=== PATIENT | female | born 1940 | race Caucasian/White ===

== ENCOUNTER 2018-12-08 12:54 | Inpatient (IN) | payer MEDICARE, BC ==
[2018-12-08] MEDS ORDERED: NS 0.9% 1000 ML** 1,000 ML IV ONE (13:51)
[2018-12-08] MEDS ORDERED: Albuterol 2.5 MG/3 ML NEB.SOL* (0.083%) INH ONE (13:53)
--- NOTE | 2018-12-08 14:04 | ED ---
Complex/Multi-Sys Presentation - HPI Summary HPI Summary: Patient is a 78 yr old female who presents emergency department for evaluation after fall that occurred earlier this morning. [facility]. Patient was reportedly found on the ground this morning with bruising to the right side of her face. History is obtained from patient's daughters who are present. Daughters note that patient has chronic dementia but seems a bit more confused than her baseline. Patient also has associated symptoms of a cough. Patient is not anticoagulated. Past hx of HTN. Symptoms are moderate in severity. No current modifying factors. 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 - Allergies/Home Medications Allergies/Adverse Reactions: Allergies Allergy/AdvReac Type Severity Reaction Status Date / Time Sulfa (Sulfonamide Allergy Unknown Verified 12/08/18 14:48 Antibiotics) Reaction Details Home Medications: Home Medications Acetaminophen [Acetaminophen Extra Strength] 1,000 mg PO Q8HR PRN 12/08/18 [ History Confirmed 12/08/18] Hydrochlorothiazide TAB* [Hydrodiuril TAB*] 12.5 mg PO QAM 12/08/18 [History Confirmed 12/08/18] Polyethylene Glycol 3350* [Miralax*] 17 gm PO QAM 12/08/18 [History Confirmed ] clonazePAM TAB(*) [KlonoPIN TAB(*)] 1 mg PO 0830,1300,1700 PRN 12/08/18 [ History Confirmed 12/08/18] PMH/Surg Hx/FS Hx/Imm Hx Previously Healthy: Yes Endocrine/Hematology History: Denies: Hx Diabetes Cardiovascular History: Reports: Hx Hypertension Denies: Hx Pacemaker/ICD Respiratory History: Denies: Hx Asthma Sensory History: Denies: Hx Hearing Aid Psychiatric History: Denies: Hx Panic Disorder - Cancer History Cancer Type, Location and Year: UTERINE - Surgical History Surgery Procedure, Year, and Place: HYSTERECTOMY WITH APPY,ACOUSTIC NEUROMA 1997 ,EYE LID LIFT, CATARACTS Infectious Disease History: Unable to Obtain/Confirm Infectious Disease History: Denies: Hx Clostridium Difficile, Hx Hepatitis, Hx Human Immunodeficiency Virus (HIV), Hx of Known/Suspected MRSA, Hx Shingles, Hx Tuberculosis, Hx Known/ Suspected VRE, Hx Known/Suspected VRSA, History Other Infectious Disease, Traveled Outside the [place] in Last 30 Days - Family History Known Family History: Positive: Hypertension, Non-Contributory - Social History Occupation: Retired Lives: [facility] Alcohol Use: None Substance Use Type: Reports: None Hx Tobacco Use: No Smoking Status (MU): Never Smoked Tobacco Have You Smoked in the Last Year: No Review of Systems Constitutional: Negative Negative: Fever Eyes: Negative ENT: Negative Cardiovascular: Negative Positive: Shortness Of Breath, Cough Gastrointestinal: Negative Positive: Other - bruising to right side of face Positive: Bruising Neurological: Other - increased confusion All Other Systems Reviewed And Are Negative: Yes Physical Exam Triage Information Reviewed: Yes Vital Signs On Initial Exam: Initial Vitals Temp Pulse Resp BP Pulse Ox 98.8 F 101 20 163/96 89 12/08/18 12:57 12/08/18 12:57 12/08/18 12:57 12/08/18 12:57 12/08/18 12:57 Vital Signs Reviewed: Yes Appearance: Positive: Well-Nourished - Pt. lying in bed with bruising to right side of her face. Awake and alert. Daughters present. Skin: Positive: Warm, Dry Head/Face: Positive: Other - Diffuse ecchymosis to right side of face. Eyes: Positive: Normal, EOMI, SHAHRIAR, Conjunctiva Clear Neck: Positive: Supple Respiratory/Lung Sounds: Positive: Other - Mild diffuse expiratory wheeze. Productive cough noted. Cardiovascular: Positive: Normal, RRR Abdomen Description: Positive: Nontender, Soft Musculoskeletal: Positive: Normal, Strength/ROM Intact Neurological: Positive: Normal, CN Intact II-III. Negative: Alert, Oriented to Person Place, Time Psychiatric: Positive: Affect/Mood Appropriate Diagnostics - Vital Signs Vital Signs Temp Pulse Resp BP Pulse Ox 12/08/18 13:17 107 26 160/89 95 12/08/18 13:16 108 20 94 12/08/18 12:57 98.8 F 101 20 163/96 89 - Laboratory Result Diagrams: 12/08/18 14:16 12/08/18 14:16 Lab Statement: Any lab studies that have been ordered have been reviewed, and results considered in the medical decision making process. Complex Multi-Symp Course/Dx Course Of Treatment: Pt. presenting with facial injury after fall. She is afebrile. Tachycardic in the one teens. Pt. is also noted to be hypoxic in the low 90's- high 80's which is abnormal for pt. 2L placed. Hx is limited from pt. given baseline dementia. ECG done at 1357 shows a sinus tachycardia of 109bpm, normal axis, no ST elevation. CBC and CMP is unremarkable. U/A nitrate positive. Pt. given a dose of rocephin. Brain CT negative per radiology. CXR negative for acute findings per radiology. Per radiology: IMPRESSION: 1. Right facial soft tissue swelling with no maxillofacial fracture. 2. A small extension teardrop fracture is seen along the anterior inferior endplate of. C6. 3. Disproportionate temporal lobe volume loss (can be seen in setting of dementia). Case discussed with Dr. Irvin who would like [place] J and MRI cervical spine and xrays of lumbar and T spine. Results discussed with pt.'s daughters. Pt. has remained tachycardic and hypoxic, CTA odered to r/o PE. CTA negative. Dr. Irvin reviewed MRI and feels fx is nonsurgical. His PA to see pt. in the ED. Pt. continues to be tachycardic. Will admit to medicine. Case discussed with Dr. Jiménez and she will admit to her service. - Diagnoses Provider Diagnoses: Closed C6 fracture, UTI (urinary tract infection), Facial contusion, Tachycardia, Hypoxia Discharge ED - Sign-Out/Discharge Documenting (check all that apply): Patient Departure Patient Received Moderate/Deep Sedation with Procedure: No - Discharge Plan Condition: Stable Disposition: ADMITTED TO [facility] Referrals: Candie Brice MD [Primary Care Provider] - - Billing Disposition and Condition Condition: STABLE Disposition: Admitted to [facility]
[2018-12-08 14:26] LABS: ABS Eosinophils 0.1 10^3/ul (0-0.6); ABS Lymphocytes 0.8 10^3/ul (1.0-4.8); ABS Monocytes 0.5 10^3/ul (0-0.8); ABS Neutrophils 7.3 10^3/ul (1.5-7.7); Eosinophil % 1.2 %; Hematocrit 38 % (35-47); Hemoglobin 12.4 g/dL (12.0-16.0); Lymphocyte % 8.7 %; Mean Corpuscular HGB Conc 33 g/dL (31-36); Mean Corpuscular Hemoglobin 27 pg (27-31); Mean Corpuscular Volume 82 fL (80-97); Mean Platelet Volume 7.6 fL (7.4-10.4); Platelet Count 182 10^3/uL (150-450); Red Blood Count 4.63 10^6 /uL (3.70-4.87); Red Cell Distribution Width 18 % (10-15); White Blood Count 8.7 10^3/uL (3.5-10.8)
[2018-12-08 14:41] LABS: Urine Appearance Cloudy; Urine Bacteria 1+ (Absent); Urine Bilirubin Negative (Negative); Urine Blood 1+ (Negative); Urine Color Yellow; Urine Glucose Negative (Negative); Urine Ketones Negative (Negative); Urine Nitrite Positive (Negative); Urine Protein Negative (Negative); Urine Red Blood Cell Absent (Absent); Urine Specific Gravity 1.011 (1.010-1.030); Urine Squamous Epithelial Cell Present (Absent); Urine Urobilinogen Negative (Negative); Urine White Blood Cell 2+(11-20/hpf) (Absent)
[2018-12-08] MEDS ORDERED: cefTRIAXone(*) 1 GM in NS 0.9% 50 ML* 50 ML IVPB ONE (14:43)
[2018-12-08 14:51] LABS: Albumin/Globulin Ratio 1.1 (1-3); BUN/Creatinine Ratio 21.1 (8-20); C Reactive Protein 23.7 mg/L (<8.01); Calcium 9.1 mg/dL (8.6-10.3); EGFR African American 96.8 (>60); Globulin 3.5 g/dL (2-4); Potassium 3.6 mmol/L (3.5-5.0); Total Bilirubin 0.4 mg/dL (0.2-1.0); Total Protein 7.5 g/dL (6.4-8.9)
[2018-12-08] MEDS ORDERED: Iohexol 350* (CONTRAST) 500 ML MDV IV ONE (15:52)
[2018-12-08] MEDS ORDERED: clonazePAM TAB(*) 1 MG PO ONE (17:47)
[2018-12-08] MEDS ORDERED: LORazepam INJ* 2 MG/ML 1 ML VIAL IV PUSH ONE (18:10)
[2018-12-08] MEDS ORDERED: Lorazepam PYXIS KEY PRN (18:10)
[2018-12-08] MEDS ORDERED: Lorazepam PYXIS KEY ONE (18:14)
[2018-12-08] MEDS ORDERED: Albuterol 2.5 MG/3 ML NEB.SOL* (0.083%) INH PRN (18:30)
[2018-12-08] MEDS ORDERED: Magnesium Hydroxide LIQ* 30 ML UDC PO PRN (18:30)
[2018-12-08] MEDS ORDERED: Acetaminophen TAB* 325 MG PO PRN (18:30)
[2018-12-08] MEDS ORDERED: Docusate CAP* 100 MG PO PRN (18:30)
[2018-12-08] MEDS ORDERED: Ondansetron INJ* 2 MG/ML VIAL IV PRN (18:30)
--- NOTE | 2018-12-08 20:26 | HP ---
CC: [facility]; Dr. Irvin * ADMISSION HISTORY AND PHYSICAL: DATE OF ADMISSION: 12/08/18 PR[facility] ATTENDING PHYSICIAN: Dr. Isabela Potts.* (DICTATED BY RAISA HUITRON NP) HISTORY OF PRESENT ILLNESS: Ms. Hoskins is a 78-year-old female patient with a history of dementia, hypertension, and hyperlipidemia who was presenting in the emergency department after sustaining a nonwitnessed fall at [facility] today. Most of the report is received from her 2 daughters who are at the bedside. They state that the patient was found on the floor this morning with bruising to the right side of her face. The daughters state that the staff at [facility] stated they did not witness the fall. [facility] initially stated that they were going to keep the patient and observe her at the facility; however, at the behest of the daughters, the patient was brought to the emergency department for evaluation. In the ED, because of the bruising pattern on her face, it was apparent that the patient did have a face forward fall; however, the patient is not able to report any symptoms or severity or any recollection of the events because of advanced dementia. As such, the emergency department did do extensive imaging of the patient in the form of brain CT, cervical spine and maxillofacial CT, and chest x-ray. She also had lumbar spine and thoracic spine x-rays and chest and thorax CTA. Essentially, all of her imaging was negative with the exception of the cervical spine CT. Cervical spine CT did show a C6 fracture described as an extension teardrop fracture which was seen along the anterior inferior endplate of C6. A followup MRI of the cervical spine was also completed, which revealed the same findings. ED physician reached out to Dr. Irvin of neurosurgery and felt that the fracture is nonsurgical and requested that the patient be placed in a [place] collar and he would be coming in to see the patient and requested that the patient be admitted to medical service. In the ED findings, the patient was also noted to have urinary tract infection. She had nitrites in her urine and was given a dose of ceftriaxone. PAST MEDICAL HISTORY: Significant for frontal lobe dementia, hypertension, and hyperlipidemia. PAST SURGICAL HISTORY: Hysterectomy for ovarian cancer at the age of 50, excision of acoustic neuroma approximately 20 years ago. MEDICATIONS AT HOME: Include: 1. Tylenol Extra Strength 1000 mg p.o. q.8 hours as needed. 2. Clonazepam 1 mg p.o. at 0830, 1300, and 1700 as needed. 3. Zoloft 200 mg in the morning. 4. Hydrochlorothiazide 12.5 mg in the morning. 5. MiraLAX 17 g p.o. in the morning. ALLERGIES: She has allergy to SULFA, which causes swelling. FAMILY HISTORY: Father with cardiac disease and [place]. Brother also with cardiac disease. SOCIAL HISTORY: The patient has never smoked. Does not drink alcohol. She has had no history of illicit drug use. REVIEW OF SYSTEMS: Secondary to the patient's dementia, I am unable to obtain review of systems. The patient is not able to verbalize her needs or describe how she is feeling. PHYSICAL EXAMINATION GENERAL: The patient is awake and alert, in a moderate amount of distress. She appears to be somewhat agitated at this time. VITAL SIGNS: Blood pressure 151/87, heart rate 113, respiratory rate 26, O2 saturation 95% on 2 L blow-by. HEENT: The patient is normocephalic. She has an abrasion to the cheek area that is edematous and erythematous with an abrasion. She is otherwise PERRLA and nonicteric sclerae. Oral mucosa is somewhat dry. Tongue is midline. NECK: I am not able to palpate her neck secondary to [place] J collar being in place. CHEST: Benign. LUNGS: Clear bilaterally to auscultation with no wheezing, rhonchi, or rales. I do note that she has an intermittent cough, but her lungs are otherwise clear. CARDIOVASCULAR: S1, S2 is present. Rate is tachycardic. Rhythm is otherwise regular. She has no murmurs, gallops, or rubs noted. ABDOMEN: Soft, nontender, nondistended. Positive bowel sounds in all 4 quadrants. : She has a Meier catheter inserted draining clear yellow urine. MUSCULOSKELETAL: There is no clubbing, no cyanosis, no edema. She has several abrasions to her forearms and to her knees. Otherwise, no further skin tears or lacerations noted and she has no pedal edema. +2 distal pulses palpable. She otherwise has full range of motion. She does have good examiner of currency. 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 In that sense, she does not appear to have any weakness or neurologic deficit that we can ascertain. Her strength does appear to be intact. NEUROLOGIC: Otherwise, neurologically, she has baseline dementia and is confused. PSYCHIATRIC: She does have periods of agitation. DIAGNOSTIC DATA/LAB DATA: Laboratories: WBC is 8.7, RBC is 4.63, hemoglobin 12.8, hematocrit 38, platelets 182. Sodium 139, potassium 3.6, chloride 104, CO2 of 30, BUN 15, creatinine 0.71, GFR 80.0, glucose 127, lactic acid 1.0, calcium 9.1, magnesium 2.0. Total bilirubin 0.40, AST 19, ALT 13, alk phos 82. Troponin is negative at 0.00. CRP 23.70. Total protein 7.5, albumin 4.0, globulin 3.5, albumin/globulin ratio 1.1. Urinalysis shows yellow cloudy urine, pH is 8.0, specific gravity 1.011, protein negative, ketones negative, 1+ blood , positive nitrites, negative for bilirubin, negative for urobilinogen, 2+ leukocyte esterase, 2+ wbc's, absent rbc's, present squamous epithelial cells, 1 + bacteria, and negative for glucose. Imaging: CT of the brain shows no acute intracranial abnormalities. There is disproportionate volume loss along the temporal lobes, nonspecific, can be seen in the setting of dementia, status post left canal wall mastoidectomy and mild chronic small-vessel ischemic disease likely. Cervical spine CT shows vertebral bodies appear normal height. C2-C3 and C3-C4 , no disk protrusion; there is minimal spondylitic ridge noted. At C4-C5, minimal spondylitic ridge noted. No fractures noted at C5-C6 and C6-C7. C7 through T1 dorsal and ventral osteophyte formation is noted. No fracture identified. Impression, no compression fracture is noted. Chest x-ray shows low lung volumes, but no evidence for acute finding. Maxillofacial CT shows right facial soft tissue swelling with no maxillofacial fracture. There is a small extension of a teardrop fracture seen along the anterior inferior endplate of C6. There is disproportionate temporal lobe volume loss which can be seen in the setting of dementia. The cervical spine MRI shows a minimally distracted fracture extending through the anterior inferior endplate of C6 which is re-demonstrated extension teardrop pattern. There is prevertebral edema extending from C4 to T2. There was perceived T2 hyperintensity of the cord at the level of C6-C7 seen only on the motion degraded axial images and is therefore favored to be artifactual; however, correlate with physical exam for any myelopathic signs. No significant spinal canal stenosis. Lumbar spine x-ray shows no fracture noted. Thoracic spine x-ray shows no fracture of the thoracic spine noted. CTA of the chest and thorax shows no PE. IMPRESSION: Ms. Hoskins is a 78-year-old female patient with history of dementia and hypertension who presents in the emergency department today after an unwitnessed fall and now found to have a teardrop extension fracture of the C6 vertebra. PLAN/RECOMMENDATIONS: The patient has been admitted to inpatient. Diagnoses: 1. C6 teardrop fracture. Currently, the patient is in a [place] collar. She is on bedrest. Pain control, we have ordered morphine q.2 hours as needed. She has received 1 dose of IV Ativan. The patient has been persistently tachycardic. She is quite agitated. Because she cannot communicate her needs, I am hoping that pain control will control her heart rate and blood pressure at this point and also continue to help calm the patient's agitation. Dr. Irvin has already been consulted and will be seeing the patient. It appears that this fracture is nonsurgical in nature. 2. Urinary tract infection. As she does have nitrites, we will follow urine culture. She has already been given ceftriaxone and Meier catheter has been in place for comfort given her cervical fracture. 3. Hypertension. She is on hydrochlorothiazide daily; this will be continued at 12.5 mg. 4. The patient does have a subjective cough. The daughter states she has been coughing recently and was on Tessalon Perles. Her chest x-ray is clear. She does not appear to have a consolidation. She was receiving 1 nebulizer in the emergency department because she did appear to have some respiratory distress when she was first admitted. We will continue nebs p.r.n. Right now, her lungs do sound clear; however, I will give her some guaifenesin. She could have some underlying bronchitis. We will continue to monitor her respiratory status. 5. For diet, she can have regular diet. 6. Code status. She is DNR. 7. DVT prophylaxis with Lovenox 40 mg daily. We will also place her on SCDs because the patient is not ambulatory. 8. Disposition: The patient has been admitted to inpatient. Healthcare proxy is her daughter, Lauren Pal; her phone number is [phone]. She has been at the bedside and is aware of the plan of care. Neurosurgery will also be contacting her regarding any further interventions. This plan of care has been discussed with Dr. Isabela Potts, the attending on this case, and she is in agreement with the plan of care. TIME SPENT: Sixty-five minutes on admission planning. Rest of the patient's course will be determined by further diagnostics, laboratories, and any other input from other providers as warranted during this admission. RAISA HUITRON NP [id number]/[facility] #: [id number] RENEA
--- NOTE | 2018-12-08 20:34 | CONS ---
CONSULTATION NOTE: DATE OF CONSULT: 12/08/18 HISTORY OF PRESENT ILLNESS: This is a 78-year-old female with a history of bilateral frontal lobe dementia, following up in the ED after having an unwitnessed mechanical fall. The patient was found down at the [facility] where she lives. No one was able to verify if the patient loss consciousness. At the time of consult she is very aggravated and does not speak. History was given through intake report and through ER physician's account. The patient's family was not at bed-side at the time of the consultation. The patient came into the ED, had scans done, CT of head, cervical spine, as well as thoracic and lumbar spine. The patient appeared to have a possible teardrop fracture at the anterior portion of the inferior end- plate of C6. Neurosurgery was consulted to evaluate the patient. PAST MEDICAL HISTORY: Positive for dementia and high cholesterol. MEDICATIONS: 1. Tylenol Extra Strength. 2. Clonazepam 1 mg. 3. Zoloft 200 mg. 4. Hydrochlorothiazide 12.5 mg. 5. MiraLAX 17 g. PHYSICAL EXAM: Vital Signs: Heart rate 105 to 113, respiratory 16 to 26, O2 saturation 95% to 100% on room air, blood pressure is 168/85. Physical examination is very limited. The patient does not follow commands. She moves all extremities. Does not engage verbally with the provider. Currently is agitated at the time of consultation, is moving and turning and twisting towards the sides, again would not engage with the provider. ASSESSMENT: A 78-year-old female with history of bifrontal dementia status post mechanical fall at [facility]. Head CT was normal. No acute injury, subdural hematoma, or midline shifting noted. CT scan of cervical spine shows a possible teardrop or osteophyte fracture at the anterior inferior plate of C6. Thoracic and lumbar spines were unremarkable, did not show any acute injury. The patient is neurologically intact. PLAN: At this time, recommend the patient wear [place] J Collar. No surgical intervention is needed. We will discuss this case further with Dr. Irvin. ARNALDO GASTON [id number]/[facility] #: [id number] [facility] HOSPITALMeka
--- NOTE | 2018-12-08 20:41 | PN ---
Progress Note - Progress Note Date of Service: 12/08/18 Note: Patient seen and examined. Please refer to dictation by ARNALDO Mckeon for present hx details Patient sedated, On MJ collar [place] spontaneously, opens eyes to verbal. Does not follow commands (baseline per daughters) MRI reveals inferior endplat fracture of C6 w/o evidence of PLC injury, Discussed in extend with patient's daughters regarding treatment options and risks and benefits of each option. At this point we agreed to attempt conservative treatment with cervical collar. Recommend sitting or upright XR of c spine in MJ collar in am. Lizbeth Irvin MD
[2018-12-08] MEDS ORDERED: hydrALAZINE IV* 20 MG/ML VIAL IV SLOW PU PRN (22:21)
[2018-12-09] MEDS: Enoxaparin(*) 40 MG/0.4 ML SYR SUBCUT SCH ×2 (00:02→21:15)
[2018-12-09] MEDS: guaiFENesin ER TAB 600 MG PO SCH ×3 (00:07→21:15)
[2018-12-09] MEDS ORDERED: Metoprolol Tartrate IV* 1 MG/ML 5 ML VIAL IV ONE (04:08)
[2018-12-09] MEDS: Morphine INJ* 2 MG/ML 1 ML SYRINGE (TWO MG - NEW SYRINGE VERSION) IV PRN (04:11)
[2018-12-09 06:49] LABS: ABS Monocytes 0.6 10^3/ul (0-0.8); ABS Neutrophils 7.1 10^3/ul (1.5-7.7); Eosinophil % 0.2 %; Hematocrit 38 % (35-47); Hemoglobin 12.7 g/dL (12.0-16.0); Lymphocyte % 11.2 %; Mean Corpuscular HGB Conc 34 g/dL (31-36); Mean Corpuscular Hemoglobin 28 pg (27-31); Mean Corpuscular Volume 81 fL (80-97); Mean Platelet Volume 7.8 fL (7.4-10.4); Nucleated Red Blood Cells % 0.1; Platelet Count 191 10^3/uL (150-450); Red Blood Count 4.61 10^6 /uL (3.70-4.87); Red Cell Distribution Width 17 % (10-15); White Blood Count 8.7 10^3/uL (3.5-10.8)
[2018-12-09 07:08] LABS: BUN/Creatinine Ratio 18.8 (8-20); Calcium 8.5 mg/dL (8.6-10.3); EGFR African American 109.2 (>60); EGFR Non-African American 90.2 (>60); Potassium 3.5 mmol/L (3.5-5.0)
[2018-12-09] MEDS: Hydrochlorothiazide TAB* 25 MG PO SCH (11:07)
[2018-12-09] MEDS: Sertraline* 100 MG TAB PO SCH (11:08)
[2018-12-09] MEDS: Polyethylene Glycol 3350* 17 GM PACKET PO SCH (11:08)
--- NOTE | 2018-12-09 13:03 | PN ---
Progress Note - Progress Note Date of Service: 12/09/18 Note: Patient is resting comfortable in bed, at this time will recommend sitting upright X rays of the cervical spine with [place] J collar on. We follow up after imaging if fracture appear stable patient will be cleared from neurosurgery standpoint.
[2018-12-09] MEDS ORDERED: cefTRIAXone(*) 1 GM in NS 0.9% 50 ML* 50 ML IVPB SCH ×2 (15:00→18:00)
--- NOTE | 2018-12-09 15:52 | PN ---
Subjective Date of Service: 12/09/18 Interval History: Patient seen and examined. No acute overnight events. Per record patient slept well with no periods of acute agitation. Patient is currently sleeping, appears unlabored. Daughters at bedside. Objective Active Medications: Acetaminophen (Tylenol Tab*) 650 mg PO Q4H PRN PRN Reason: MILD PAIN or TEMP > 100.4 Albuterol (Ventolin 2.5 Mg/3 Ml Neb.Patricia*) 2.5 mg INH [id number] AWAKE PRN PRN Reason: sob/wheezing Clonazepam (Klonopin Tab(*)) 1 mg PO 0830,1300,1700 PRN PRN Reason: ANXIETY Docusate Sodium (Colace Cap*) 100 mg PO BID PRN PRN Reason: CONSTIPATION Enoxaparin Sodium (Lovenox(*)) 40 mg SUBCUT Q24H [facility] Last Admin: 12/09/18 00:02 Dose: 40 mg Guaifenesin (Mucinex*) 600 mg PO BID [facility] Last Admin: 12/09/18 11:07 Dose: Not Given Hydralazine HCl (Apresoline Iv*) 5 mg IV SLOW PU Q6H PRN PRN Reason: SBP>170 Last Admin: 12/09/18 00:07 Dose: 5 mg Hydrochlorothiazide (Hydrodiuril Tab*) 12.5 mg PO QAM [facility] Last Admin: 12/09/18 11:07 Dose: Not Given Ceftriaxone Sodium 1 gm/ (Sodium Chloride) 50 mls @ 100 mls/hr IVPB Q24H [facility] Last Admin: 12/09/18 15:28 Dose: 100 mls/hr Magnesium Hydroxide (Milk Of Magnesia Liq*) 30 ml PO Q4H PRN PRN Reason: CONSTIPATION Miscellaneous (Ativan Pyxis Guan) 1 ea N/A .ATIVAN IV GUAN PRN PRN Reason: PYXIS GUAN Morphine Sulfate (Morphine Inj (Syringe))*) 2 mg IV Q2H PRN PRN Reason: PAIN - SEVERE Last Admin: 12/09/18 04:11 Dose: 2 mg Ondansetron HCl (Zofran Inj*) 4 mg IV Q4H PRN PRN Reason: NAUSEA/VOMITING Polyethylene Glycol/Electrolytes (Miralax*) [facility] Last Admin: 12/09/18 11:08 Dose: Not Given Sertraline HCl (Zoloft*) 200 mg PO QAM [facility] Last Admin: 12/09/18 11:08 Dose: Not Given Vital Signs - 8 hr 12/09/18 12/09/18 12/09/18 07:59 08:04 10:22 Temperature 98.7 F Pulse Rate 90 Respiratory 17 20 Rate Blood Pressure 154/75 (mmHg) O2 Sat by Pulse 97 Oximetry 12/09/18 12/09/18 11:21 15:16 Temperature 98.8 F 98.1 F Pulse Rate 94 100 Respiratory 20 16 Rate Blood Pressure 158/84 150/69 (mmHg) O2 Sat by Pulse 98 94 Oximetry Oxygen Devices in Use Now: OxyMask Appearance: asleep, easily arousable, NAD Eyes: PERRLA Ears/Nose/Mouth/Throat: Mucous Membranes Moist, - - abrasions/ecchymosis to right cheek and forehead Respiratory: Symmetrical Chest Expansion and Respiratory Effort, Clear to Auscultation Cardiovascular: NL Sounds; No Murmurs; No JVD, RRR Abdominal: NL Sounds; No Tenderness; No Distention Skin: No Nodules or Sclerosis Neurological: - - confused at baseline Nutrition: Taking PO's Result Diagrams: 12/09/18 05:50 12/09/18 05:50 Microbiology and Other Data: Microbiology 12/08/18 14:21 Aerobic Blood Culture - Preliminary Blood Venous No Growth Day 1 Anaerobic Blood Culture - Preliminary No Growth Day 1 12/08/18 14:09 Aerobic Blood Culture - Preliminary Blood Venous No Growth Day 1 Anaerobic Blood Culture - Preliminary No Growth Day 1 12/09/18 01:30 Nasal Screen MRSA (PCR) - Final Nasal Mrsa Not Detected Diagnostic Imaging: Patient Name: SHIMON CHAPPELL Medical Record#: [id number] Ordering Physician: Alex MCINTOSH Acct.#: [id number] : 1940 Age: 78 Sex: F Location: EMERGENCY DEPARTMENT Exam Date: 12/08/181526 ADM Status: REG ER Order Information: MRI CERVICAL SPINE WO Accession Number: [id number] CPT: 70563 INDICATION: Recent trauma with C6 fracture. COMPARISON: Same day C-spine CT TECHNIQUE: Axial T2 and sagittal T1 and T2 and coronal T2-weighted images of the cervical spine were obtained. FINDINGS: The images are motion degraded. There is mild straightening of cervical lordotic curvature without spondylolisthesis or abnormal splaying of spinous processes. The craniovertebral junction and facets are anatomically aligned. The small minimally distracted fracture extending through the anterior inferior endplate of C6 is redemonstrated. There is no bony retropulsion or significant paraspinal hematoma. There is generalized T1 hyperintensity of the bone marrow (likely related to osteopenia). No suspicious focal bone marrow signal is identified. There is moderate intervertebral disc height loss at C5-C6 and C6-C7. The cervicomedullary junction and cervical spinal cord are grossly normal in signal and volume. On axial imaging, perceived hyperintensity of the cord at C6-C7 is likely artifactual. Mild prevertebral edema extends from C4 to T2. An incidental circumscribed subcentimeter cystic structure is seen along the T1-T2 interspinous space (equivocal: Ganglion cyst of the interspinous ligament is considered). Otherwise, the paraspinal soft tissues are grossly unremarkable. There are varying degrees of multilevel spondylosis with broad-based disc osteophyte complexes at C5-C6 and C6-C7. No significant spinal canal stenosis is identified. Evaluation of the neural foramina is prohibited by motion artifact. IMPRESSION: 1. The minimally distracted fracture extending through the anterior inferior endplate of C6 is redemonstrated (extension teardrop pattern). There is prevertebral edema extending from C4 to T2. 2. Perceived T2 hyperintensity of the cord at the level of C6-C7 is seen only on the motion degraded axial images and is therefore favored to be artifactual. However , correlate physical exam for any myelopathic signs. 3. No significant spinal canal stenosis. Radiculopathic evaluation prohibited by motion. This report is only to be considered final once signed by the Provider(s) as displayed in the "<Electronically Signed by >" field (s). Absence of a signature indicates the report is in a draft status and still needs to be finalized. In the event this document was created by someone other than the signing Provider, the individual initiating the document will be listed in the "Entered by:" or "Dictated by:" farley. 1 of 2 Assess/Plan/Problems-Billing Assessment: This is a 78 year old female with frontal lobe dementia that presented to the ER after unwitnessed fall at [facility], found to have a C6 fracture. - Patient Problems (1) Closed C6 fracture Code(s): S12.500A - UNSP DISP FX OF SIXTH CERVICAL VERTEBRA, INIT FOR CLOS FX SNOMED Code(s): 086153376 Comment: - After unwtinessed fall - Neurosurgery following - [place] J collar at all times - MRI as above, NS requested upright cSpine films today to assess for stability in the collar - Pain control PRN - Conservative management for now, appreciate any further recs from neurosurgery (2) Dementia Code(s): F03.90 - UNSPECIFIED DEMENTIA WITHOUT BEHAVIORAL DISTURBANCE SNOMED Code(s): 34160328 Comment: - Has advanced frontal lobe dementia and is not able to communicate needs or follow commands - continue PRN medications for agitation to ensure patient does not shift in the collar and maintains cSpine precautions - Continue clonazepam TID and sertraline daily - (3) Hypertension Code(s): I10 - ESSENTIAL (PRIMARY) HYPERTENSION SNOMED Code(s): 65536405 Comment: - BP stable on HCTZ, had tachycrdia at admission now resolved (4) UTI (urinary tract infection) Comment: - Continue IV ceftriaxone, follow cultures, continue el (5) DVT prophylaxis Code(s): Z29.9 - ENCOUNTER FOR PROPHYLACTIC MEASURES, UNSPECIFIED SNOMED Code( s): 870435378 Comment: - Lovenox SQ (6) DNR (do not resuscitate) Status and Disposition: Inpatient, dispo TBD. Back to rehab when medically stable.
--- NOTE | 2018-12-09 17:44 | PN ---
Progress Note - Progress Note Date of Service: 12/09/18 Note: Patient completed upright X rays, fracture appears stable. Neurosurgery team spoke with patient's family afterward and discussed treatment options. Since her fracture appears stable on imaging at this time, will recommend conservative therapy with bracing. The family was also informed there is a possibility could become unstable and would require surgery in the future. The family indicates they would prefer conservative treatment. At this time patient will not require any surgical intervention. We recommend patient follow up in 2 weeks in neurosurgery clinic in 2 weeks with new upright Xray's AP /lateral views in [facility].
[2018-12-10] MEDS: Morphine INJ* 2 MG/ML 1 ML SYRINGE (TWO MG - NEW SYRINGE VERSION) IV PRN ×3 (05:49→16:22)
[2018-12-10] MEDS ORDERED: NS 0.9% 1000 ML** 1,000 ML IV SCH (09:15)
--- NOTE | 2018-12-10 09:47 | PN ---
Subjective Date of Service: 12/10/18 Interval History: Pt has decreased PO intake x3 days. She continues to be disoriented and confused. Nursing staff report increased coughing and difficulty with swallowing foods. Discussed with family, Lauren and Liya, who want hospicare or CR on hospice. They request comfort care. We discussed MOLST form, which states no IV antibiotics, no IV fluids. They would like to abide by this and discontinue IV abx for UTI. Discussed possibility of worsening infection, possibly sepsis or ; they are aware and understand this. Objective Active Medications: Acetaminophen (Tylenol Tab*) 650 mg PO Q4H PRN Albuterol (Ventolin 2.5 Mg/3 Ml Neb.Patricia*) 2.5 mg INH [id number] AWAKE PRN Clonazepam (Klonopin Tab(*)) 1 mg PO 0830,1300,1700 PRN Docusate Sodium (Colace Cap*) 100 mg PO BID PRN Enoxaparin Sodium (Lovenox(*)) 40 mg SUBCUT Q24H [facility] Guaifenesin (Mucinex*) 600 mg PO BID [facility] Hydralazine HCl (Apresoline Iv*) 5 mg IV SLOW PU Q6H PRN Hydrochlorothiazide (Hydrodiuril Tab*) 12.5 mg PO QAM [facility] Ceftriaxone Sodium 1 gm/ (Sodium Chloride) 50 mls @ 100 mls/hr IVPB Q24H [facility] Sodium Chloride (Ns 0.9% 1000 Ml) 1,000 mls @ 100 mls/hr IV PER RATE [facility] Magnesium Hydroxide (Milk Of Magnesia Liq*) 30 ml PO Q4H PRN Miscellaneous (Ativan Pyxis Guan) 1 ea N/A .ATIVAN IV GUAN PRN Morphine Sulfate (Morphine Inj (Syringe))*) 2 mg IV Q2H PRN Ondansetron HCl (Zofran Inj*) 4 mg IV Q4H PRN Polyethylene Glycol/Electrolytes (Miralax*) 17 gm PO QAM [facility] Sertraline HCl (Zoloft*) 200 mg PO QAM [facility] Vital Signs: Temp Pulse Resp BP Pulse Ox 98.9 F 108 18 120/66 94 12/10/18 07:57 12/10/18 07:57 12/10/18 07:57 12/10/18 07:57 12/10/18 07:57 Oxygen Devices in Use Now: Simple Face Mask, OxyMask Appearance: Pt is sittin u pin bed, [place] collar in place. She is pleasantly confused, in NAD. Answers to questions are inappropriate. Eyes: No Scleral Icterus, PERRLA Neck: NL Appearance and Movements; NL JVP, Trachea Midline, - - [place] collar in place Respiratory: - - Symmetrical expansion. Rhonchorous breath sounds in b/l lungs anteriorly. Unable to lean forward or follow instructions for deep breathing. Cardiovascular: NL Sounds; No Murmurs; No JVD Abdominal: NL Sounds; No Tenderness; No Distention, No Hepatosplenomegaly Extremities: No Edema, No Clubbing, Cyanosis Neurological: - - Alert, awake. Pleasantly confused with clear, but inappropriate speech. Result Diagrams: 12/09/18 05:50 12/09/18 05:50 Microbiology and Other Data: Microbiology 12/08/18 14:21 Aerobic Blood Culture - Preliminary Blood Venous No Growth Day 1 Anaerobic Blood Culture - Preliminary No Growth Day 1 12/08/18 14:09 Aerobic Blood Culture - Preliminary Blood Venous No Growth Day 1 Anaerobic Blood Culture - Preliminary No Growth Day 1 12/09/18 01:30 Nasal Screen MRSA (PCR) - Final Nasal Mrsa Not Detected Diagnostic Imaging: Patient Name: SHIMON CHAPPELL Medical Record#: [id number] Ordering Physician: Alex MCINTOSH Acct.#: [id number] : 1940 Age: 78 Sex: F Location: EMERGENCY DEPARTMENT Exam Date: 12/08/181526 ADM Status: REG ER Order Information: MRI CERVICAL SPINE WO Accession Number: [id number] CPT: 27254 INDICATION: Recent trauma with C6 fracture. COMPARISON: Same day C-spine CT TECHNIQUE: Axial T2 and sagittal T1 and T2 and coronal T2-weighted images of the cervical spine were obtained. FINDINGS: The images are motion degraded. There is mild straightening of cervical lordotic curvature without spondylolisthesis or abnormal splaying of spinous processes. The craniovertebral junction and facets are anatomically aligned. The small minimally distracted fracture extending through the anterior inferior endplate of C6 is redemonstrated. There is no bony retropulsion or significant paraspinal hematoma. There is generalized T1 hyperintensity of the bone marrow (likely related to osteopenia). No suspicious focal bone marrow signal is identified. There is moderate intervertebral disc height loss at C5-C6 and C6-C7. The cervicomedullary junction and cervical spinal cord are grossly normal in signal and volume. On axial imaging, perceived hyperintensity of the cord at C6-C7 is likely artifactual. Mild prevertebral edema extends from C4 to T2. An incidental circumscribed subcentimeter cystic structure is seen along the T1-T2 interspinous space (equivocal: Ganglion cyst of the interspinous ligament is considered). Otherwise, the paraspinal soft tissues are grossly unremarkable. There are varying degrees of multilevel spondylosis with broad-based disc osteophyte complexes at C5-C6 and C6-C7. No significant spinal canal stenosis is identified. Evaluation of the neural foramina is prohibited by motion artifact. IMPRESSION: 1. The minimally distracted fracture extending through the anterior inferior endplate of C6 is redemonstrated (extension teardrop pattern). There is prevertebral edema extending from C4 to T2. 2. Perceived T2 hyperintensity of the cord at the level of C6-C7 is seen only on the motion degraded axial images and is therefore favored to be artifactual. However , correlate physical exam for any myelopathic signs. 3. No significant spinal canal stenosis. Radiculopathic evaluation prohibited by motion. This report is only to be considered final once signed by the Provider(s) as displayed in the "<Electronically Signed by >" field (s). Absence of a signature indicates the report is in a draft status and still needs to be finalized. In the event this document was created by someone other than the signing Provider, the individual initiating the document will be listed in the "Entered by:" or "Dictated by:" farley. 1 of 2 Assess/Plan/Problems-Billing Assessment: This is a 78 year old female with frontal lobe dementia that presented to the ER [facility], found to have a C6 fracture. - Patient Problems (1) Need for comfort care Comment: -Long discussion with daughters, who also discussed with Dr. Sarah, and they request comfort care -IVF and IV antibiotics discontinued -Will implement comfort care measures only (2) Closed C6 fracture Comment: - After unwtinessed fall - Neurosurgery following - [place] J collar at all times - MRI as above - C-spine XR 12/09 obtained; NS states fracture stable, continue conservative treatment - Pain control PRN - Conservative management for now, appreciate any further recs from neurosurgery - F/u neurosurgery in 2 weeks with repeat standing CS films prior to appointment (3) Cough Comment: -Pt with cough, cough with swallowing, rhonchorous breath sounds; concerning for aspiration -Swallow study offered; daughters refuse this and further workup or treatment (4) UTI (urinary tract infection) Comment: - Cx reveal klebsiella pneumoniae - EVY says no antibiotics - Discussion with family, who ask for d/c of antibiotics. Discussed possibility of untreated UTI, may lead to sepsis, or . They express understanding. They request hospice consult (ordered) and comfort care measures - Discontinue Ceftriaxone (5) Dementia Comment: - Has advanced frontal lobe dementia and is not able to communicate needs or follow commands - continue PRN medications for agitation to ensure patient does not shift in the collar and maintains cSpine precautions - Continue clonazepam TID and sertraline daily (6) DNR (do not resuscitate) Status and Disposition: Inpatient, dispo TBD. Back to rehab when medically stable. Family requesting Hospicare or CR on hospice.
[2018-12-10] MEDS: Polyethylene Glycol 3350* 17 GM PACKET PO SCH (10:03)
[2018-12-10] MEDS: Hydrochlorothiazide TAB* 25 MG PO SCH (10:04)
[2018-12-10] MEDS: Sertraline* 100 MG TAB PO SCH (10:04)
[2018-12-10] MEDS: guaiFENesin ER TAB 600 MG PO SCH (10:06)
--- NOTE | 2018-12-10 10:44 | CONSULT ---
Palliative / Hospice Consult Ordering Provider: Betzaida Power - PCP-Candie Brice Reason: Goals of care discussion/ on colace & miralax/ MS for pain - Subjective Code Status: DNR Advance Directives Location: In Chart [facility] Part A Completed: Yes - on chart [facility] Part E Completed:: Yes - on chart - History or Present Illness History or Present Illness: 78yo female with severe dementia who had unwitnessed fall now with C6 fx and UTI. PMH is significant for dementia, HTN, hyperlipidemia, s/ps hysterectomy 28 yrs ago and removal of acoustic neuroma 20yrs ago. PSHx non smoker, no drug use , no alcohol use. Daughter Lauren is her HCP. Studies CXR neg, ekg sinus tach, brain ct mild small vessel ischemic disease, cspine no fx, maxifacial ct small fx to C6, MRI c spine showed c6 fx, lumbar & thorax xray no fx, CTA no PE, repeat c spine osteophyte is obscuring fx, H/H 12.7/38, BUN/Cr 12/.64, egfr 90.2 , Ca 8.5, tprot 7.5, alb 4 and UC K.pneumonia. Pt admitted with C6 fx and UTI. All history is from family and medical records. Pt is unable to contribute due to dementia. Family just wants comfort care. Lab Values: Laboratory Last Values WBC 8.7 10^3/uL (3.5-10.8) 12/09/18 05:50 RBC 4.61 10^6 /uL (3.70-4.87) 12/09/18 05:50 Hgb 12.7 g/dL (12.0-16.0) 12/09/18 05:50 Hct 38 % (35-47) 12/09/18 05:50 MCV 81 fL (80-97) 12/09/18 05:50 MCH 28 pg (27-31) 12/09/18 05:50 MCHC 34 g/dL (31-36) 12/09/18 05:50 RDW 17 % (10-15) H 12/09/18 05:50 Plt Count 191 10^3/uL (150-450) 12/09/18 05:50 MPV 7.8 fL (7.4-10.4) 12/09/18 05:50 Neut % (Auto) 81.6 % 12/09/18 05:50 Lymph % (Auto) 11.2 % 12/09/18 05:50 [place] % (Auto) 6.7 % 12/09/18 05:50 Eos % (Auto) 0.2 % 12/09/18 05:50 Baso % (Auto) 0.3 % 12/09/18 05:50 Absolute Neuts (auto) 7.1 10^3/ul (1.5-7.7) 12/09/18 05:50 Absolute Lymphs (auto) 1.0 10^3/ul (1.0-4.8) 12/09/18 05:50 Absolute Monos (auto) 0.6 10^3/ul (0-0.8) 12/09/18 05:50 Absolute Eos (auto) 0.0 10^3/ul (0-0.6) 12/09/18 05:50 Absolute Basos (auto) 0.0 10^3/ul (0-0.2) 12/09/18 05:50 Absolute Nucleated RBC 0.0 10^3/ul 12/09/18 05:50 Nucleated RBC % 0.1 12/09/18 05:50 Sodium 136 mmol/L (135-145) 12/09/18 05:50 Potassium 3.5 mmol/L (3.5-5.0) 12/09/18 05:50 Chloride 101 mmol/L (101-111) 12/09/18 05:50 Carbon Dioxide 29 mmol/L (22-32) 12/09/18 05:50 Anion Gap 6 mmol/L (2-11) 12/09/18 05:50 BUN 12 mg/dL (6-24) 12/09/18 05:50 Creatinine 0.64 mg/dL (0.51-0.95) 12/09/18 05:50 Est GFR ( Amer) 109.2 (>60) 12/09/18 05:50 Est GFR (Non-Af Amer) 90.2 (>60) 12/09/18 05:50 BUN/Creatinine Ratio 18.8 (8-20) 12/09/18 05:50 Glucose 130 mg/dL (70-100) H 12/09/18 05:50 Lactic Acid 1.0 mmol/L (0.5-2.0) 12/08/18 14:16 Calcium 8.5 mg/dL (8.6-10.3) L 12/09/18 05:50 Magnesium 2.0 mg/dL (1.9-2.7) 12/08/18 14:16 Total Bilirubin 0.40 mg/dL (0.2-1.0) 12/08/18 14:16 AST 19 U/L (13-39) 12/08/18 14:16 ALT 13 U/L (7-52) 12/08/18 14:16 Alkaline Phosphatase 82 U/L (34-104) 12/08/18 14:16 Troponin I 0.00 ng/mL (<0.04) 12/08/18 14:16 C-Reactive Protein 23.70 mg/L (<8.01) H 12/08/18 14:16 Total Protein 7.5 g/dL (6.4-8.9) 12/08/18 14:16 Albumin 4.0 g/dL (3.2-5.2) 12/08/18 14:16 Globulin 3.5 g/dL (2-4) 12/08/18 14:16 Albumin/Globulin Ratio 1.1 (1-3) 12/08/18 14:16 Urine Color Yellow 12/08/18 14:09 Urine Appearance Cloudy 12/08/18 14:09 Urine pH 8.0 (5-9) 12/08/18 14:09 Ur Specific [place] 1.011 (1.010-1.030) 12/08/18 14:09 Urine Protein Negative (Negative) 12/08/18 14:09 Urine Ketones Negative (Negative) 12/08/18 14:09 Urine Blood 1+ (Negative) A 12/08/18 14:09 Urine Nitrate Positive (Negative) A 12/08/18 14:09 Urine Bilirubin Negative (Negative) 12/08/18 14:09 Urine Urobilinogen Negative (Negative) 12/08/18 14:09 Ur Leukocyte Esterase 2+ (Negative) A 12/08/18 14:09 Urine WBC (Auto) 2+(11-20/hpf) (Absent) A 12/08/18 14:09 Urine RBC (Auto) Absent (Absent) 12/08/18 14:09 Ur Squamous Epith Cells Present (Absent) A 12/08/18 14:09 Urine Bacteria 1+ (Absent) A 12/08/18 14:09 Urine Glucose Negative (Negative) 12/08/18 14:09 - Objective Active Medications: Acetaminophen (Tylenol Tab*) 650 mg PO Q4H PRN PRN Reason: MILD PAIN or TEMP > 100.4 Albuterol (Ventolin 2.5 Mg/3 Ml Neb.Patricia*) 2.5 mg INH [id number] AWAKE PRN PRN Reason: sob/wheezing Clonazepam (Klonopin Tab(*)) 1 mg PO 0830,1300,1700 PRN PRN Reason: ANXIETY Docusate Sodium (Colace Cap*) 100 mg PO BID PRN PRN Reason: CONSTIPATION Enoxaparin Sodium (Lovenox(*)) 40 mg SUBCUT Q24H [facility] Last Admin: 12/09/18 21:15 Dose: 40 mg Guaifenesin (Mucinex*) 600 mg PO BID [facility] Last Admin: 12/10/18 10:06 Dose: Not Given Hydralazine HCl (Apresoline Iv*) 5 mg IV SLOW PU Q6H PRN PRN Reason: SBP>170 Last Admin: 12/09/18 00:07 Dose: 5 mg Hydrochlorothiazide (Hydrodiuril Tab*) 12.5 mg PO [facility] Last Admin: 12/10/18 10:04 Dose: 12.5 mg Magnesium Hydroxide (Milk Of Magnesia Liq*) 30 ml PO Q4H PRN PRN Reason: CONSTIPATION Miscellaneous (Ativan Pyxis Guan) 1 ea N/A .ATIVAN IV GUAN PRN PRN Reason: PYXIS GUAN Morphine Sulfate (Morphine Inj (Syringe))*) 2 mg IV Q2H PRN PRN Reason: PAIN - SEVERE Last Admin: 12/10/18 05:49 Dose: 2 mg Ondansetron HCl (Zofran Inj*) 4 mg IV Q4H PRN PRN Reason: NAUSEA/VOMITING Polyethylene Glycol/Electrolytes (Miralax*) 17 gm PO [facility] Last Admin: 12/10/18 10:03 Dose: 17 gm Sertraline HCl (Zoloft*) 200 mg PO [facility] Last Admin: 12/10/18 10:04 Dose: 200 mg Vital Signs: Vital Signs: Temp Pulse Resp BP Pulse Ox 98.9 F 108 18 120/66 94 12/10/18 07:57 12/10/18 07:57 12/10/18 07:57 12/10/18 07:57 12/10/18 07:57 Patient Weight: Weight 86.183 kg Intake and Output: Intake & Output 12/08/18 12/09/18 12/10/18 12/11/18 06:59 06:59 06:59 06:59 Intake Total 1050 300 Output Total 955 1475 Balance 95 -1175 Weight 86.183 kg Intake: IV Fluids 1050 Oral 0 300 Output: [place] 955 1475 Other: # Bowel Movements 0 ADLs: Meal Record Start: 12/08/18 20: 20 Freq: Status: Active Protocol: Created 12/08/18 20:20 System (Rec: 12/08/18 20:20 System [id number]) Document 12/09/18 21:02 [id number] (Rec: 12/09/18 21:03 [id number] [id number]) Intake and Output Start: 12/08/18 13: 05 Freq: Status: Active Protocol: Created 12/08/18 13:05 System (Rec: 12/08/18 13:05 System [id number]) Document 12/09/18 21:02 [id number] (Rec: 12/09/18 21:03 [id number] [id number]) Intake and Output Start: 12/08/18 20: 20 Freq: DAILY@0600,1400,2200 Status: Active Protocol: Created 12/08/18 20:20 System (Rec: 12/08/18 20:20 System [id number]) Document 12/09/18 05:11 [id number] (Rec: 12/09/18 05:20 [id number] SSU-M18) Document 12/09/18 14:26 [id number] (Rec: 12/09/18 14:26 [id number] SSU-M17) Document 12/09/18 21:02 [id number] (Rec: 12/09/18 21:03 [id number] SSU-M18) Document 12/10/18 06:15 [id number] (Rec: 12/10/18 06:16 [id number] [id number]) Eyes: No Scleral Icterus, PERRLA Ears/Nose/Mouth/Throat: Mucous Membranes Moist, - - abrasions/ecchymosis to right cheek and forehead Neck: NL Appearance and Movements; NL JVP, Trachea Midline, - - [place] collar in place Cardiovascular: NL Sounds; No Murmurs; No JVD, - - tachycardic Respiratory: - - upper airway congestion Abdominal: NL Sounds; No Tenderness; No Distention, No Hepatosplenomegaly Extremities: No Edema, No Clubbing, Cyanosis Neurological: - - Alert, awake. Pleasantly confused with clear, but inappropriate speech. - Assessment Assessment: 78yo female with dementia presents s/p unwitnessed fall now with C6 fx and UTI - Plan Consult Plan (MU): Hospice Plan: Spoke with daughter Lauren who is her HCP over the phone and her sister Liya was with her. Family only wants comfort care because her mother has severe dementia. They cared for her at home but 2 weeks ago she was placed at [facility] because they could no longer lift her. They are aware that she has a UTI but they do not want antibiotics, they are refusing IV fluids and do not want further work up for her chest congestion and tachycardia. This has been relayed to nurse and hospitalist. Family doesn't want her to suffer but feel she has no quality of life. Hospice information given. They have spoken with director of casework services and they want referral sent to [facility] for a residence bed if no bed available they are interested in [facility] with hospice referral. Pt is eligible for hospice with the diagnosis of severe dementia and refusing interventions. KPS 50% PPS 50% - Time On Unit Date of Evaluation: 12/10/18 Hospice Consult Time in: 10:00 Hospice Consult Time Out: 11:30 Hospice Consult Time Total: 90
[2018-12-10] MEDS ORDERED: guaiFENesin ER TAB 600 MG PO PRN (13:25)
[2018-12-10] MEDS ORDERED: Morphine INJ* 2 MG/ML 1 ML SYRINGE (TWO MG - NEW SYRINGE VERSION) IV PRN (18:51)
[2018-12-10] MEDS: Atropine 1% (ORAL/SL)* 15 ML BTL SL PRN (21:47)
[2018-12-11] MEDS: Morphine INJ* 2 MG/ML 1 ML SYRINGE (TWO MG - NEW SYRINGE VERSION) IV PRN ×3 (11:01→23:37)
--- NOTE | 2018-12-11 14:43 | PN ---
Subjective Date of Service: 12/11/18 Interval History: Patient cannot really answer questions. When asked about pain, she says yes, but cannot localize. Daughters report at times she puts her hand on her neck or forehead. Reviewed nursing note from this morning. Family History: Unchanged from Admission Social History: Unchanged from Admission Past Medical History: Unchanged from Admission Objective Active Medications: Acetaminophen (Tylenol Tab*) 650 mg PO Q4H PRN PRN Reason: MILD PAIN or TEMP > 100.4 Albuterol (Ventolin 2.5 Mg/3 Ml Neb.Patricia*) 2.5 mg INH [id number] AWAKE PRN PRN Reason: sob/wheezing Atropine Sulfate (Atropine 1% (Oral/Sl)*) 2 drop SL Q2H PRN PRN Reason: secretions Last Admin: 12/10/18 21:47 Dose: 2 drop Clonazepam (Klonopin Tab(*)) 1 mg PO 0830,1300,1700 PRN PRN Reason: ANXIETY Guaifenesin (Mucinex*) 600 mg PO BID PRN PRN Reason: cough causing discomfort Morphine Sulfate (Morphine Inj (Syringe))*) 1 mg IV Q4H PRN PRN Reason: PAIN - MILD Morphine Sulfate (Morphine Inj (Syringe))*) 2 mg IV Q4H PRN PRN Reason: PAIN - SEVERE Last Admin: 12/11/18 11:01 Dose: 2 mg Ondansetron HCl (Zofran Inj*) 4 mg IV Q4H PRN PRN Reason: NAUSEA/VOMITING Vital Signs - 8 hr 12/11/18 12/11/18 08:30 11:01 Respiratory 18 18 Rate Oxygen Devices in Use Now: Nasal Cannula Appearance: lying in bed, eyes closed, [place] J collar in place Ears/Nose/Mouth/Throat: Clear Oropharnyx Respiratory: Clear to Auscultation Cardiovascular: NL Sounds; No Murmurs; No JVD, RRR Abdominal: NL Sounds; No Tenderness; No Distention Neurological: - - answering questions, not reliable Nutrition: Taking PO's Result Diagrams: 12/09/18 05:50 12/09/18 05:50 Diagnostic Imaging: Patient Name: SHIMON CHAPPELL Medical Record#: [id number] Ordering Physician: Alex MCINTOSH Acct.#: [id number] : 1940 Age: 78 Sex: F Location: EMERGENCY DEPARTMENT Exam Date: 12/08/18 1527 ADM Status: REG ER Order Information: MRI CERVICAL SPINE WO Accession Number: [id number] CPT: 95308 INDICATION: Recent trauma with C6 fracture. COMPARISON: Same day C-spine CT TECHNIQUE: Axial T2 and sagittal T1 and T2 and coronal T2-weighted images of the cervical spine were obtained. Assess/Plan/Problems-Billing Assessment: This is a 78 year old female with frontal lobe dementia that presented to the ER after unwitnessed fall at [employer], found to have a C6 fracture. - Patient Problems (1) Closed C6 fracture Current Visit: Yes Status: Acute Code(s): S12.500A - UNSP DISP FX OF SIXTH CERVICAL VERTEBRA, INIT FOR CLOS FX SNOMED Code(s): 081241401 Comment: - OK for nurse to walk w/ patient, gait belt, if patient indicates - [place] J collar at all times - Pain control PRN, nurse to monitor for S/S of pain/discomfort, and give morphine as needed (2) Dementia Current Visit: Yes Status: Acute Priority: Medium Code(s): F03.90 - UNSPECIFIED DEMENTIA WITHOUT BEHAVIORAL DISTURBANCE SNOMED Code(s): 70687810 Comment: - Has advanced frontal lobe dementia and is at times not able to communicate needs or follow commands - continue PRN medications for agitation, pain, dyspnea, or nausea (3) UTI (urinary tract infection) Current Visit: Yes Status: Acute Priority: Medium Comment: - MOLST states no antibiotics - Discussed with both daughters goals of care. - Patient may have liquids or solids PO if she indicates thirst/hunger (4) Need for comfort care Current Visit: Yes Status: Acute Priority: Medium Code(s): JAL9978 - SNOMED Code(s): 528759330 Comment: -Reviewed goals of care with nurse and both daughters -Will implement comfort care measures only -No HCP or living will in chart, will follow [facility] Status and Disposition: Inpatient, will go to NH-hospice or swing.
[2018-12-11] MEDS: Atropine 1% (ORAL/SL)* 15 ML BTL SL PRN (22:49)
--- NOTE | 2018-12-12 16:29 | PN ---
Subjective Date of Service: 12/12/18 Interval History: Patient has walked in [place] with assist, and ate well today. She has dementia, cannot account for herself. She does admit to neck pain. Had one dose morphine early this AM, has not seemed in pain since then. No family in today. Family History: Unchanged from Admission Social History: Unchanged from Admission Past Medical History: Unchanged from Admission Objective Active Medications: Acetaminophen (Tylenol Tab*) 650 mg PO Q4H PRN PRN Reason: MILD PAIN or TEMP > 100.4 Albuterol (Ventolin 2.5 Mg/3 Ml Neb.Patricia*) 2.5 mg INH [id number] AWAKE PRN PRN Reason: sob/wheezing Atropine Sulfate (Atropine 1% (Oral/Sl)*) 2 drop SL Q2H PRN PRN Reason: secretions Last Admin: 12/11/18 22:49 Dose: 2 drop Clonazepam (Klonopin Tab(*)) 1 mg PO 0830,1300,1700 PRN PRN Reason: ANXIETY Guaifenesin (Mucinex*) 600 mg PO BID PRN PRN Reason: cough causing discomfort Miscellaneous (Ativan Pyxis Lawson) 1 ea N/A .ATIVAN IV LAWSON PRN PRN Reason: PYXIS LAWSON Morphine Sulfate (Morphine Inj (Syringe))*) 1 mg IV Q4H PRN PRN Reason: PAIN - MILD Last Admin: 12/12/18 06:19 Dose: 1 mg Morphine Sulfate (Morphine Inj (Syringe))*) 2 mg IV Q4H PRN PRN Reason: PAIN - SEVERE Last Admin: 12/11/18 23:37 Dose: 2 mg Ondansetron HCl (Zofran Inj*) 4 mg IV Q4H PRN PRN Reason: NAUSEA/VOMITING Vital Signs - 8 hr 12/12/18 12/12/18 10:24 15:31 Temperature 36.9 C 36.7 C Pulse Rate 114 105 Respiratory 18 18 Rate Blood Pressure 127/58 126/63 (mmHg) O2 Sat by Pulse 94 91 Oximetry Oxygen Devices in Use Now: Nasal Cannula Appearance: elderly, no distress, coughing Respiratory: Clear to Auscultation Cardiovascular: NL Sounds; No Murmurs; No JVD Abdominal: NL Sounds; No Tenderness; No Distention, No Hepatosplenomegaly Lines/Tubes/Other Access: Clean, Dry and Intact Peripheral IV Nutrition: Taking PO's Result Diagrams: 12/09/18 05:50 12/09/18 05:50 Microbiology and Other Data: Microbiology 12/08/18 14:09 Urine Urine Culture - Final Klebsiella Pneumoniae 12/08/18 14:21 Blood Venous Aerobic Blood Culture - Preliminary 12/08/18 14:21 Blood Venous Anaerobic Blood Culture - Preliminary No Growth Day 4 No Growth Day 4 12/08/18 14:09 Blood Venous Aerobic Blood Culture - Preliminary 12/08/18 14:09 Blood Venous Anaerobic Blood Culture - Preliminary No Growth Day 4 No Growth Day 4 Assess/Plan/Problems-Billing Assessment: This is a 78 year old female with frontal lobe dementia that presented to the ER after unwitnessed fall at [email or web address], found to have a C6 fracture. - Patient Problems (1) Closed C6 fracture Current Visit: Yes Status: Acute Code(s): S12.500A - UNSP DISP FX OF SIXTH CERVICAL VERTEBRA, INIT FOR CLOS FX SNOMED Code(s): 992314591 Comment: - OK for nurse to walk w/ patient, gait belt, if patient indicates - [place] J collar at all times - Pain control PRN, nurse to monitor for S/S of pain/discomfort, and give morphine as needed (2) Dementia Current Visit: Yes Status: Acute Priority: Medium Code(s): F03.90 - UNSPECIFIED DEMENTIA WITHOUT BEHAVIORAL DISTURBANCE SNOMED Code(s): 36622982 Comment: - Has advanced frontal lobe dementia and is at times not able to communicate needs or follow commands - continue PRN medications for agitation, pain, dyspnea, or nausea (3) UTI (urinary tract infection) Current Visit: Yes Status: Acute Priority: Medium Comment: - MOLST states no antibiotics - Discussed with both daughters goals of care. - Patient may have liquids or solids PO if she indicates thirst/hunger (4) Need for comfort care Current Visit: Yes Status: Acute Priority: Medium Code(s): GFX6180 - SNOMED Code(s): 120328576 Comment: -Reviewed goals of care with nurse and both daughters -Will implement comfort care measures only -No HCP or living will on chart, will follow [facility] Status and Disposition: Inpatient, will go to NH-hospice or swing.
[2018-12-12] MEDS: clonazePAM TAB(*) 1 MG PO PRN (20:25)
[2018-12-12] MEDS: Atropine 1% (ORAL/SL)* 15 ML BTL SL PRN (22:46)
--- NOTE | 2018-12-13 07:54 | PN ---
Subjective Date of Service: 12/13/18 Interval History: Pt is feeling ok. She does point to her neck when I ask if she has pain. When I ask if the pain is tolerable she starts talking about the water pitcher. Objective Active Medications: Acetaminophen (Tylenol Tab*) 650 mg PO Q4H PRN PRN Reason: MILD PAIN or TEMP > 100.4 Albuterol (Ventolin 2.5 Mg/3 Ml Neb.Patricia*) 2.5 mg INH [id number] AWAKE PRN PRN Reason: sob/wheezing Atropine Sulfate (Atropine 1% (Oral/Sl)*) 2 drop SL Q2H PRN PRN Reason: secretions Last Admin: 12/12/18 22:46 Dose: 2 drop Clonazepam (Klonopin Tab(*)) 1 mg PO 0830,1300,1700 PRN PRN Reason: ANXIETY Last Admin: 12/12/18 20:25 Dose: 1 mg Guaifenesin (Mucinex*) 600 mg PO BID PRN PRN Reason: cough causing discomfort Miscellaneous (Ativan Pyxis Guan) 1 ea N/A .ATIVAN IV GUAN PRN PRN Reason: PYXIS GUAN Morphine Sulfate (Morphine Inj (Syringe))*) 1 mg IV Q4H PRN PRN Reason: PAIN - MILD Last Admin: 12/12/18 06:19 Dose: 1 mg Ondansetron HCl (Zofran Inj*) 4 mg IV Q4H PRN PRN Reason: NAUSEA/VOMITING Oxygen Devices in Use Now: Nasal Cannula Appearance: Elderly female walking from bathroom to bed, NAD Eyes: No Scleral Icterus Ears/Nose/Mouth/Throat: Mucous Membranes Moist Respiratory: Symmetrical Chest Expansion and Respiratory Effort, Clear to Auscultation - anteriorly Cardiovascular: NL Sounds; No Murmurs; No JVD, No Edema, - - tachycardic but regular Abdominal: NL Sounds; No Tenderness; No Distention Extremities: No Clubbing, Cyanosis Skin: No Nodules or Sclerosis Neurological: - - alert, confused Result Diagrams: 12/09/18 05:50 12/09/18 05:50 Microbiology and Other Data: Microbiology 12/08/18 14:09 Urine Urine Culture - Final Klebsiella Pneumoniae 12/08/18 14:21 Blood Venous Aerobic Blood Culture - Preliminary 12/08/18 14:21 Blood Venous Anaerobic Blood Culture - Preliminary No Growth Day 4 No Growth Day 4 12/08/18 14:09 Blood Venous Aerobic Blood Culture - Preliminary 12/08/18 14:09 Blood Venous Anaerobic Blood Culture - Preliminary No Growth Day 4 No Growth Day 4 Diagnostic Imaging: Patient Name: SHIMON CHAPPELL Medical Record#: [id number] Ordering Physician: Alex MCINTOSH Acct.#: [id number] : 1940 Age: 78 Sex: F Location: EMERGENCY DEPARTMENT Exam Date: 12/08/181526 ADM Status: REG ER Order Information: MRI CERVICAL SPINE WO Accession Number: [id number] CPT: 98917 INDICATION: Recent trauma with C6 fracture. COMPARISON: Same day C-spine CT TECHNIQUE: Axial T2 and sagittal T1 and T2 and coronal T2-weighted images of the cervical spine were obtained. Assess/Plan/Problems-Billing Ms Chappell is a 78 year old female with frontal lobe dementia that presented to the ER after unwitnessed fall at [facility] and found to have a C6 fracture. - Patient Problems (1) Closed C6 fracture Current Visit: Yes Status: Acute Code(s): S12.500A - UNSP DISP FX OF SIXTH CERVICAL VERTEBRA, INIT FOR CLOS FX SNOMED Code(s): 056381851 Comment: Pt is up and walking with assistance. Tolerating the [place] J collar though it is frequently found out of place. Continue tylenol for pain. She has had only a single dose of morphine in the last 24hr. Will stop morphine and change to prn oxycodone. Monitor for increased pain. (2) UTI (urinary tract infection) Current Visit: Yes Status: Acute Comment: Pt is not being treated for UTI as her MOLST states no Abx or IVF. (3) Cough Current Visit: Yes Status: Acute Code(s): R05 - COUGH SNOMED Code(s): 30670420 Comment: There has been concern for aspiration as the patient has had cough and roncherous breath sounds (not noticed by me today). She has also been noted to have cough with swallowing. The patient's family does not want any work up for this including swallow evaluation. Continue supportive care. (4) Dementia Current Visit: Yes Status: Acute Code(s): F03.90 - UNSPECIFIED DEMENTIA WITHOUT BEHAVIORAL DISTURBANCE SNOMED Code(s): 60017083 Comment: Pt has advanced dementia though at this time is not imminently dying. She is able to ask for food and to walk. Will continue to provide supportive care. (5) Hypertension Current Visit: Yes Status: Acute Code(s): I10 - ESSENTIAL (PRIMARY) HYPERTENSION SNOMED Code(s): 73084030 Comment: BP has been fine off HCTZ. (6) DVT prophylaxis Current Visit: Yes Status: Acute Code(s): Z29.9 - ENCOUNTER FOR PROPHYLACTIC MEASURES, UNSPECIFIED SNOMED Code(s): 228653293 Comment: ambulation- family wants comfort measures only (7) DNR (do not resuscitate) Current Visit: Yes Status: Acute Status and Disposition: .
[2018-12-13] MEDS ORDERED: oxyCODONE TAB* 5 MG TAB PO PRN (07:57)
[2018-12-13] MEDS: clonazePAM TAB(*) 1 MG PO PRN (11:42)
[2018-12-14] MEDS: clonazePAM TAB(*) 1 MG PO PRN (02:09)
--- NOTE | 2018-12-14 15:16 | PN ---
Subjective Date of Service: 12/14/18 Interval History: No significant events overnight. Appreciate significant input from [employer]. Patient denies complaints, although generally does not answer questions appropriately. Working with case management for placement options. Objective Active Medications: Acetaminophen (Tylenol Tab*) 650 mg PO Q4H PRN PRN Reason: MILD PAIN or TEMP > 100.4 Albuterol (Ventolin 2.5 Mg/3 Ml Neb.Patricia*) 2.5 mg INH [id number] AWAKE PRN PRN Reason: sob/wheezing Atropine Sulfate (Atropine 1% (Oral/Sl)*) 2 drop SL Q2H PRN PRN Reason: secretions Last Admin: 12/12/18 22:46 Dose: 2 drop Clonazepam (Klonopin Tab(*)) 1 mg PO 0830,1300,1700 PRN PRN Reason: ANXIETY Last Admin: 12/14/18 02:09 Dose: 1 mg Guaifenesin (Mucinex*) 600 mg PO BID PRN PRN Reason: cough causing discomfort Miscellaneous (Ativan Pyxis Guan) 1 ea N/A .ATIVAN IV GUAN PRN PRN Reason: PYXIS GUAN Ondansetron HCl (Zofran Inj*) 4 mg IV Q4H PRN PRN Reason: NAUSEA/VOMITING Oxycodone HCl (Roxycodone Tab*) 5 mg PO Q6H PRN PRN Reason: PAIN - SEVERE Last Admin: 12/13/18 11:42 Dose: 5 mg Vital Signs - 8 hr 12/14/18 12/14/18 12/14/18 07:27 07:50 11:24 Temperature 98.2 F 98.1 F Pulse Rate 84 99 Respiratory 18 18 17 Rate Blood Pressure 131/58 138/74 (mmHg) O2 Sat by Pulse 94 93 Oximetry Appearance: elderly woman sitting in chair eating breakfast Ears/Nose/Mouth/Throat: Clear Oropharnyx Respiratory: Clear to Auscultation Cardiovascular: NL Sounds; No Murmurs; No JVD, RRR Abdominal: NL Sounds; No Tenderness; No Distention, No Hepatosplenomegaly Extremities: No Edema Neurological: - Result Diagrams: 12/09/18 05:50 12/09/18 05:50 Microbiology and Other Data: Microbiology 12/08/18 14:09 Urine Urine Culture - Final Klebsiella Pneumoniae 12/08/18 14:21 Blood Venous Aerobic Blood Culture - Preliminary 12/08/18 14:21 Blood Venous Anaerobic Blood Culture - Preliminary No Growth Day 4 No Growth Day 4 12/08/18 14:09 Blood Venous Aerobic Blood Culture - Preliminary 12/08/18 14:09 Blood Venous Anaerobic Blood Culture - Preliminary No Growth Day 4 No Growth Day 4 Diagnostic Imaging: Patient Name: SHIMON CHAPPELL Medical Record#: [id number] Ordering Physician: Alex MCINTOSH Acct.#: [id number] : 1940 Age: 78 Sex: F Location: EMERGENCY DEPARTMENT Exam Date: 12/08/18 152 ADM Status: REG ER Order Information: MRI CERVICAL SPINE WO Accession Number: [id number] CPT: 88475 INDICATION: Recent trauma with C6 fracture. COMPARISON: Same day C-spine CT TECHNIQUE: Axial T2 and sagittal T1 and T2 and coronal T2-weighted images of the cervical spine were obtained. Assess/Plan/Problems-Billing Ms Chappell is a 78 year old female with frontal lobe dementia that presented to the ER after unwitnessed fall at [facility] and found to have a C6 fracture. - Patient Problems (1) Closed C6 fracture Current Visit: Yes Status: Acute Code(s): S12.500A - UNSP DISP FX OF SIXTH CERVICAL VERTEBRA, INIT FOR CLOS FX SNOMED Code(s): 112981324 Comment: Pt is up and walking with assistance. Tolerating the [place] J collar though it is frequently found out of place. Continue tylenol for pain. She has had only a single dose of morphine in the last 24hr. Will stop morphine and change to prn oxycodone. Monitor for increased pain. (2) UTI (urinary tract infection) Current Visit: Yes Status: Acute Comment: Pt is not being treated for UTI as her MOLST states no Abx or IVF. (3) Cough Current Visit: Yes Status: Acute Code(s): R05 - COUGH SNOMED Code(s): 22978729 Comment: There has been concern for aspiration as the patient has had cough and roncherous breath sounds (not noticed by me today). She has also been noted to have cough with swallowing. The patient's family does not want any work up for this including swallow evaluation. Continue supportive care. (4) DNR (do not resuscitate) Current Visit: Yes Status: Acute (5) DVT prophylaxis Current Visit: Yes Status: Acute Code(s): Z29.9 - ENCOUNTER FOR PROPHYLACTIC MEASURES, UNSPECIFIED SNOMED Code(s): 408758202 Comment: ambulation- family wants comfort measures only (6) Dementia Current Visit: Yes Status: Acute Code(s): F03.90 - UNSPECIFIED DEMENTIA WITHOUT BEHAVIORAL DISTURBANCE SNOMED Code(s): 66720689 Comment: Pt has advanced dementia though at this time is not imminently dying. She is able to ask for food and to walk. Will continue to provide supportive care. (7) Hypertension Current Visit: Yes Status: Acute Code(s): I10 - ESSENTIAL (PRIMARY) HYPERTENSION SNOMED Code(s): 29597800 Comment: BP has been fine off HCTZ. Status and Disposition: .
[2018-12-15 07:54] VITALS: BP 136/71
--- NOTE | 2018-12-15 08:02 | PN ---
Subjective Date of Service: 12/15/18 Interval History: No events overnight. CM team discussed placement options with daughters yesterday, but they declined all options. Pending family meeting today at 9am. Objective Active Medications: Acetaminophen (Tylenol Tab*) 650 mg PO Q4H PRN PRN Reason: MILD PAIN or TEMP > 100.4 Last Admin: 12/14/18 16:59 Dose: 650 mg Albuterol (Ventolin 2.5 Mg/3 Ml Neb.Patricia*) 2.5 mg INH [id number] AWAKE PRN PRN Reason: sob/wheezing Atropine Sulfate (Atropine 1% (Oral/Sl)*) 2 drop SL Q2H PRN PRN Reason: secretions Last Admin: 12/12/18 22:46 Dose: 2 drop Clonazepam (Klonopin Tab(*)) 1 mg PO 0830,1300,1700 PRN PRN Reason: ANXIETY Last Admin: 12/14/18 02:09 Dose: 1 mg Guaifenesin (Mucinex*) 600 mg PO BID PRN PRN Reason: cough causing discomfort Miscellaneous (Ativan Pyxis Guan) 1 ea N/A .ATIVAN IV GUAN PRN PRN Reason: PYXIS GUAN Ondansetron HCl (Zofran Inj*) 4 mg IV Q4H PRN PRN Reason: NAUSEA/VOMITING Oxycodone HCl (Roxycodone Tab*) 5 mg PO Q6H PRN PRN Reason: PAIN - SEVERE Last Admin: 12/13/18 11:42 Dose: 5 mg Vital Signs - 8 hr 12/15/18 07:53 Temperature 97.6 F Pulse Rate 86 Respiratory 17 Rate Blood Pressure 136/71 (mmHg) O2 Sat by Pulse 95 Oximetry Appearance: sitting in chair at side of bed, appears comfortable Eyes: No Scleral Icterus Ears/Nose/Mouth/Throat: Mucous Membranes Moist Extremities: No Edema Skin: No Rash or Ulcers Neurological: - - nonverbal Result Diagrams: 12/09/18 05:50 12/09/18 05:50 Microbiology and Other Data: Microbiology 12/08/18 14:09 Urine Urine Culture - Final Klebsiella Pneumoniae 12/08/18 14:21 Blood Venous Aerobic Blood Culture - Preliminary 12/08/18 14:21 Blood Venous Anaerobic Blood Culture - Preliminary No Growth Day 4 No Growth Day 4 12/08/18 14:09 Blood Venous Aerobic Blood Culture - Preliminary 12/08/18 14:09 Blood Venous Anaerobic Blood Culture - Preliminary No Growth Day 4 No Growth Day 4 Diagnostic Imaging: Patient Name: SHIMON CHAPPELL Medical Record#: [id number] Ordering Physician: Alex MCINTOSH Acct.#: [id number] : 1940 Age: 78 Sex: F Location: EMERGENCY DEPARTMENT Exam Date: 12/08/18 1527 ADM Status: REG ER Order Information: MRI CERVICAL SPINE WO Accession Number: [id number] CPT: 67497 INDICATION: Recent trauma with C6 fracture. COMPARISON: Same day C-spine CT TECHNIQUE: Axial T2 and sagittal T1 and T2 and coronal T2-weighted images of the cervical spine were obtained. Assess/Plan/Problems-Billing Ms Chappell is a 78 year old female with frontal lobe dementia that presented to the ER after unwitnessed fall at [facility] [place] and found to have a C6 fracture. - Patient Problems (1) Closed C6 fracture Comment: Pt is up and walking with assistance. Tolerating the [place] J collar though it is frequently found out of place. Continue tylenol and oxycodone prns for pain. (2) UTI (urinary tract infection) Comment: Pt is not being treated for UTI as her MOLST states no Abx or IVF. (3) Cough Comment: There has been concern for aspiration as the patient has had cough. She has also been noted to have cough with swallowing. The patient's family does not want any work up for this including swallow evaluation. Continue supportive care. (4) Dementia Comment: Pt has advanced dementia though at this time is not imminently dying. She is able to ask for food and to walk. Will continue to provide supportive care. (5) Hypertension Comment: BP has been fine off HCTZ. (6) DVT prophylaxis Comment: ambulation- family wants comfort measures only (7) DNR (do not resuscitate) Current Visit: Yes Status: Acute Status and Disposition: .
--- NOTE | 2018-12-15 12:37 | DS ---
DISCHARGE SUMMARY: DATE OF ADMISSION: 12/08/18 DATE OF DISCHARGE: 12/15/18 PRIMARY CARE PHYSICIAN: At [facility]. PRIMARY DIAGNOSES: 1. C6 teardrop fracture. 2. Dementia. 3. Urinary tract infection. SECONDARY DIAGNOSIS: Hypertension CONSULTS: Dr. Irvin of Neurosurgery and Dr. Sarah of Palliative Care. DISCHARGE MEDICATIONS: 1. Tylenol 975 every 8 hours as needed for [id number] pain. 2. Oxycodone 5 mg every 6 hours as needed for severe pain. 3. Guaifenesin 600 mg orally twice a day as needed for cough. 4. Clonazepam 1 mg every 8 hours as needed for anxiety or agitation. 5. Atropine 1% oral solution 2 drops sublingual every 2 hours as needed for secretions. HISTORY OF PRESENT ILLNESS: Ms. Hoskins is a 78-year-old woman with dementia, hypertension, and hyperlipidemia, who presented after sustaining a non-witnessed fall at [facility] nursing [facility] on day of presentation. Most of the report is received from the patient's 2 daughters who were at the bedside.They stated the patient was found on the floor of this morning with bruising to the right side of her face. The daughter states that the staff at [facility] did not witness the fall and initially planned on keeping the patient to observe at the facility , however, at the behest of the daughters, the patient was brought to the emergency department for evaluation. HOSPITAL COURSE: In the emergency room, because of the bruising pattern of her face, it was apparent that the patient had a face forward fall, however, the patient was not able to report any symptoms or severity given advanced dementia. Brain, cervical spine and maxillofacial CTs were performed with lumbar and thoracic spine x-rays. Her imaging was notable for a C6 fracture described as an extension teardrop fracture, which was seen along the anterior inferior end plate of C6. A follow up MRI of the cervical spine confirmed these findings. Dr. Irvin of Neurosurgery was consulted and felt that the fracture was nonsurgical and requested the patient be placed in the [place] J collar and admitted to medicine for further management. The patient's UA was also noted to be positive and she was given a dose of ceftriaxone in the emergency room. Discussion between neurosurgical team and daughters resulted with shared decision for conservative treatment with cervical collar. Initially after admission, the patient was noted to have decreased oral intake for a few days. She had continued to be disoriented and confused and noted to have increased cough. Upon discussion with daughters on second day of admission, family preferred comfort measures only while in the hospital. This seems most consistent with patient's previously stated wishes in her living will, which expressed desire for no artificial means or heroic measures to prolong life. There was also a MOLST form, which noted no IV antibiotics nor IV fluids. Decision was made to switch to comfort care and not pursue diagnostics for patient's new cough or continue antibiotic treatment for UTI. Dr. Angella Sarah of Palliative Care was consulted. Family confirmed that they wanted no further workup of patient's cough or tachycardia, and wanted no further treatment for UTI nor invasive procedure for patient's C6 fracture. Family was given hospice information and they elected to pursue this option in halfway after discharge. While pending discharge plan, the patient was noted to become progressively more alert, however, she remained mostly a nonverbal and confused. She was able to feed herself while seated upright and appeared comfortable. Her IV morphine was switched to oral pain control with Tylenol and oxycodone and she appeared comfortable for the rest of hospitalization. Of note, the patient's daughters experienced multiple conflicts with hospital staff throughout the patient's hospitalization. For example, at one point her daughters were noted to be come irate with nursing staff after the patient was asking to eat and was given food. One daughter stated "if she eats then she will get better we will have to start this process all over again." It was explained to the patient's family what comfort measures include, which does include feeding patient if she is hungry, asking for food, and able to feed herself. Daughter also noted to state that "she should go on a morphine drip until she falls asleep forever." Family meeting was held on day of discharge and daughters expressed grievances over "change in care plan," although they are unable to define what changes were made. Again, the patient's family expressed anger that she was given food and that this was against her living will. When asked to show us in the living will where it states the patient was not to be fed, daughters pulled out living will and circled 2 paragraphs that did not mention feeding, only mentioning that heroic measures and artificial means should not be taken to prolong life. The patient's family members were given significant options for where the patient could be discharged to now that she has been medically cleared for discharge, eventually they were amenable to returning to [facility] with eventual initiation of hospice services. REVIEW OF SYSTEMS: A 10 point review of systems on day of discharge could not be performed given the patient's inability to communicate. PERTINENT STUDIES AND LABS: CBC, BMP, and LFTs were unremarkable. CRP 23. Urine cultures with over 100,000 CFUs of Klebsiella pneumoniae, sensitive to ceftriaxone. Brain CT with no acute intracranial abnormality and disproportionate of volume loss along the temporal lobes, nonspecific, but can be seen in setting of dementia, status post left canal wall mastoidectomy, mild chronic small vessel ischemic disease is likely. Cervical spine CT with no compression fracture noted, degenerative disease at C5 - C6, C6-C7, and C7-T1 is noted with addendum of tiny fracture at the inferior aspect of the C6 vertebrae towards the right consistent with tiny teardrop fracture of the anterior inferior endplate of C6. Cervical spine MRI with minimally distracted fracture extending through the anterior inferior endplate of C6 redemonstrated, extension of teardrop pattern with prevertebral edema extending from C4 to T2, perceived T2 hyperintensity of the cord at the level of C6 through C7 is seen only on the motion degraded axial images and therefore favored to be artifactual, however, correlate physical exam for any myelopathic signs. Chest CTA, no pulmonary embolism. Cervical spine x-ray upright with collar, showing vertebral body heights grossly maintained. DISCHARGE PLAN: The patient will return to her halfway and a hospice service consult has been notified. Daughters understand that the facility will have to ultimately order a hospice consult. The patient will be discharged on meds, as listed above, with the goal of symptom relief, as per her previously stated wishes. She should continue to have delirium precautions followed. She will continue to follow up with treating physicians at [facility]. She is to eat comfort diet with activity as able. She is to continue to wear her C-collar until after follow up with Neurosurgery. DISPOSITION: [facility]. CONDITION: Stable. TIME SPENT: Approximately 60 minutes was spent on discharging the patient, more than half of which was spent with care coordination at bedside for interview and exam. [id number]/[facility] #: [id number] RENEA
== END 2018-12-15 13:34 | DRG 552 ==
LOC: ED 12:54 → SSU 18:30
PROVIDERS: ADMIT Hospitalist; ATTEND Internal Medicine
PROC: 2W32X3Z Immobilization of Neck using Brace (ICD-10-PCS; principal; 2018-12-08)
DX: S12.500A Unspecified displaced fracture of sixth cervical vertebra, initial encounter for closed fracture (principal); N39.0 Urinary tract infection, site not specified; G31.09 Other frontotemporal neurocognitive disorder; F02.80 Dementia in other diseases classified elsewhere, unspecified severity, without behavioral disturbance, psychotic disturbance, mood disturbance, and anxiety; B96.1 Klebsiella pneumoniae [K. pneumoniae] as the cause of diseases classified elsewhere; S00.81XA Abrasion of other part of head, initial encounter; I10 Essential (primary) hypertension; M25.78 Osteophyte, vertebrae; M47.892 Other spondylosis, cervical region; E78.5 Hyperlipidemia, unspecified; R05 Cough; Z66 Do not resuscitate; Z51.5 Encounter for palliative care; M50.31 Other cervical disc degeneration, high cervical region; W19.XXXA Unspecified fall, initial encounter; Y92.129 Unspecified place in nursing home as the place of occurrence of the external cause; Z85.43 Personal history of malignant neoplasm of ovary; Z79.1 Long term (current) use of non-steroidal anti-inflammatories (NSAID); Z79.899 Other long term (current) drug therapy; Z88.2 Allergy status to sulfonamides; Z82.49 Family history of ischemic heart disease and other diseases of the circulatory system
CPT/HCPCS: 36415; 70450; 70486; 71045; 71275; 72040; 72070; 72100; 72125; 72141; 80048; 80053; 81003; 81015; 83605; 83735; 84484; 85025; 86140; 87040; 87077; 87086; 87186; 87641; 93005; 99284; A9270-GY; G8978-GP-CL; G8979-GP-CJ; J0360; J0696; J1650; J2060; J2270; J3490; Q9967